=== PATIENT | male | born 1965 | race Caucasian/White ===

== ENCOUNTER 2019-02-15 12:25 | Emergency (ER) | payer MEDICAID ==
[~2019-02-15] VITALS: Ht 180.3 cm; Wt 75.0 kg
[~2019-02-15 12:25] MED LIST: BUPR150T8 PO; CARI350T PO; CITA20TA28 PO; METO100T7 PO; OMEP-84 PO; SIMV-42 PO
[2019-02-15 12:45] VITALS: BP 155/96
[2019-02-15] MEDS ORDERED: SULF1TAB49 PO (14:05)
--- NOTE | 2019-02-15 14:20 | NUR ---
PT SOAKING RIGHT HAND IN NS AND BETADINE.
--- NOTE | 2019-02-15 15:07 | NUR ---
DRESSING APPLIED TO WOUNDS ON HAND
== END 2019-02-15 15:08 | disposition home or self-care (01) ==
LOC: ER 12:25
DX: S61.206A Unspecified open wound of right little finger without damage to nail, initial encounter (principal); S61.200A Unspecified open wound of right index finger without damage to nail, initial encounter; L03.011 Cellulitis of right finger; I10 Essential (primary) hypertension; K21.9 Gastro-esophageal reflux disease without esophagitis; F32.9 Major depressive disorder, single episode, unspecified; Z90.49 Acquired absence of other specified parts of digestive tract; Z98.890 Other specified postprocedural states; Z56.0 Unemployment, unspecified; Z59.0 Homelessness; Z79.2 Long term (current) use of antibiotics; Z79.899 Other long term (current) drug therapy; W45.8XXA Other foreign body or object entering through skin, initial encounter; Y93.89 Activity, other specified; Y92.89 Other specified places as the place of occurrence of the external cause; Y99.8 Other external cause status
CPT/HCPCS: 99283

== ENCOUNTER 2020-09-14 15:40 | Emergency (ER) | payer OTHER, MEDICAID ==
[~2020-09-14] VITALS: Ht 180.3 cm; Wt 75.0 kg
--- NOTE | 2020-09-14 16:16 | NUR ---
Pt came in to ED overflow at 1555 via EMS. Pt was brought in on gurnery and placed in bed 22. Pt is alert and oriented. Pt is calm and being interviewed by ANTONIA Hugo. Lab drawn without incident.
[2020-09-14 16:41] LABS: BASOPHILS % (AUTO) 0.6 % (0-1); EOSINOPHILS # (AUTO) 0.1 X10'3 (0-0.9); EOSINOPHILS % (AUTO) 1.7 % (0-6); HEMOGLOBIN 14.7 g/dl (14.0-17.9); LYMPHOCYTES # (AUTO) 1.6 X10'3 (1.1-4.8); LYMPHOCYTES % (AUTO) 22.9 % (21-51); MEAN CORPUSCULAR HEMOGLOBIN 31.4 PG (27.0-31.0); MEAN CORPUSCULAR HGB CONC 34.1 g/dL (33.0-36.5); MEAN CORPUSCULAR VOLUME 92.1 FL (78-98); MEAN PLATELET VOLUME 7.1 FL (7.4-10.4); MONOCYTES # (AUTO) 0.6 X10'3 (0-0.9); MONOCYTES % (AUTO) 8.6 % (2-12); NEUTROPHILS # (AUTO) 4.7 X10'3 (1.8-7.7); NEUTROPHILS % (AUTO) 66.2 % (42-75); PLATELET COUNT 296 X10'3 (140-440); RED BLOOD COUNT 4.67 X10'6 (4.70-6.10); RED CELL DISTRIBUTION WIDTH 13.3 % (11.5-14.5); WHITE BLOOD COUNT 7.1 X10'3 (4.5-11.0)
[2020-09-14 16:56] LABS: ALANINE AMINOTRANSFERASE 20 U/L (12-78); ALBUMIN 3.4 G/DL (3.4-5.0); ALKALINE PHOSPHATASE 75 IU/L (46-116); ANION GAP 8 (8-16); ASPARTATE AMINO TRANSFERASE 25 U/L (10-37); BILIRUBIN,TOTAL 0.4 MG/DL (0.1-1.0); BLOOD UREA NITROGEN 21 MG/DL (7-18); BUN/CREATININE RATIO 13.7 (5.4-32.0); CALCIUM 8.2 MG/DL (8.5-10.1); CHLORIDE 107 MMOL/L (99-107); CREATININE 1.53 MG/DL (0.60-1.10); GLUCOSE 82 MG/DL (70-104); POTASSIUM 3.7 MMOL/L (3.5-5.1); SODIUM 140 MMOL/L (135-145); TOTAL CARBON DIOXIDE 25.2 MMOL/L (24-32); TOTAL PROTEIN 6.8 G/DL (6.4-8.2); eGFR 47 ML/MIN
[2020-09-14 17:05] LABS: ETHANOL < 0.010 GM/DL (0.0-0.010)
[2020-09-14 17:28] LABS: CLARITY,URINE SLIGHTLY CLOUDY (Clear); COLOR,URINE YELLOW (Yellow); GLUCOSE, URINE NEGATIVE (Neg); KETONES,URINE NEGATIVE (Neg); LEUKOCYTE ESTERASE ,URINE NEGATIVE (Neg); NITRITES, URINE NEGATIVE (Neg); OCCULT BLOOD,URINE NEGATIVE (Neg); PROTEIN,URINE NEGATIVE (Neg); UROBILINOGEN,URINE 0.2 E.U/dL (0.2-1.0)
[2020-09-14 17:30] LABS: UA COLLECTION TYPE CLN CATCH MIDSTREAM
[2020-09-14 17:33] LABS: URINE AMPHETAMINE SCREEN POSITIVE (Neg); URINE BARBITUATE SCREEN NEGATIVE (Neg); URINE BENZODIAZEPINES SCREEN NEGATIVE (Neg); URINE CANNABINOID SCREEN NEGATIVE (Neg); URINE COCAINE SCREEN NEGATIVE (Neg); URINE METHADONE SCREEN NEGATIVE (Neg); URINE OPIATE SCREEN NEGATIVE (Neg); URINE PHENCYCLIDINE SCREEN NEGATIVE (Neg)
[2020-09-14 17:36] LABS: MUCUS STRANDS MANY /LPF (Neg)
[2020-09-14 17:37] LABS: SQUAMOUS EPITHELIAL CELL,UR FEW /LPF (FEW); TRANSITIONAL EPI CELLS,URINE FEW /HPF
[2020-09-14 17:38] LABS: HYALINE CASTS 0-3 /LPF (NEGATIVE)
[2020-09-14 17:41] LABS: BACTERIA,URINE NONE SEEN /HPF (Neg); CAL OXALATE CRYSTALS 3+ /HPF (NEGATIVE); RBC,URINE NONE SEEN /HPF (0-2); WBC,URINE 0-4 /HPF (0-4)
--- NOTE | 2020-09-14 17:43 | NUR ---
PACKET FAXED TO [facility]
--- NOTE | 2020-09-14 19:15 | NUR ---
assumed care of patient. Pt was laying in bed at change of shift, sat up to eat his dinner and ate 100% of his meal. Pt maintains that he is suicidal and doesnt feel safe to leave the hospital. Plan is to overdose on heroin. [facility] has arrived to see him.
[2020-09-14] MEDS ORDERED: LISI10TA27 PO (20:37)
--- NOTE | 2020-09-14 21:40 | NUR ---
Pt is laying quietly in bed, rr even and unlabored. Pt continues to endorse s/i.
--- NOTE | 2020-09-15 00:25 | NUR ---
pt laying on right side rr even and unlabored. no s/s distress.
--- NOTE | 2020-09-15 04:28 | NUR ---
pt is laying on his back, asleep. rr even and unlabored.
[2020-09-15 05:50] VITALS: BP_DIAS 107
--- NOTE | 2020-09-15 07:07 | NUR ---
pt is supine in bed, eyes closed, regular breathing observed, no needs at this time
[2020-09-15] MEDS ORDERED: metoprolol succinate 25mg (24-HOUR) SR. Tablet PO SCH (08:00)
[2020-09-15] MEDS ORDERED: atorvastatin 10mg tablet PO SCH (08:00)
[2020-09-15] MEDS ORDERED: lisinopril 10 MG tablet PO SCH (08:00)
--- NOTE | 2020-09-15 08:00 | NUR ---
pt at hism breakfast and was accepting of medications, calm, no needs at this time
[2020-09-15 08:12] VITALS: BP_SYST 189
--- NOTE | 2020-09-15 09:02 | NUR ---
pt awake, calm, no needs at this time
--- NOTE | 2020-09-15 10:00 | NUR ---
pt is supine in bed, eyes closed, regular breathing present, no needs at this time
--- NOTE | 2020-09-15 11:05 | NUR ---
pt is supine in bed, eyes closed, no needs at this time
--- NOTE | 2020-09-15 11:21 | NUR ---
pt has been accepted upstairs
--- NOTE | 2020-09-15 12:10 | NUR ---
PT REQ COFFEE FOR MARC, GIVEN COFFEE, SITTING UP IN BED, CALM NO NEEDS AT THIS TIME
--- NOTE | 2020-09-15 13:05 | NUR ---
pt is supine in bed, ate lunch, no needs at this time
--- NOTE | 2020-09-15 14:09 | NUR ---
pt supine in bed sleeping, regular breathing present, no needs at this time
== END 2020-09-15 14:35 ==
LOC: ER 15:41
DX: F32.9 Major depressive disorder, single episode, unspecified (principal); Z20.822 Contact with and (suspected) exposure to COVID-19; R45.851 Suicidal ideations; E86.0 Dehydration; N19 Unspecified kidney failure; I10 Essential (primary) hypertension; K21.9 Gastro-esophageal reflux disease without esophagitis; Z90.49 Acquired absence of other specified parts of digestive tract; Z98.890 Other specified postprocedural states; Z72.89 Other problems related to lifestyle; Z56.0 Unemployment, unspecified; Z59.0 Homelessness; Z79.899 Other long term (current) drug therapy
CPT/HCPCS: 36415; 80053; 80305; 80320; 81001; 84443; 85025; 87426; 99285

== ENCOUNTER 2020-09-15 11:37 | Inpatient (IN) | payer OTHER, MEDICAID ==
[~2020-09-15] VITALS: Ht 180.3 cm; Wt 79.5 kg
[~2020-09-15 11:37] MED LIST changes: -BUPR150T8 PO; -CARI350T PO; -CITA20TA28 PO; +LISI10TA27 PO; -OMEP-84 PO
[2020-09-15] MEDS ORDERED: loperamide 2mg capsule PO PRN (11:50)
[2020-09-15] MEDS ORDERED: magnesium hydroxide 30ml (MOM) UD suspension PO PRN (11:50)
[2020-09-15] MEDS ORDERED: acetaminophen 325mg tablet PO PRN ×2 (11:50)
[2020-09-15] MEDS ORDERED: mag hydrox/Alum hydrox/simeth 30ml oral suspension PO PRN (11:50)
[2020-09-15] MEDS ORDERED: NICOTINE POLACRILEX 2 MG LOZENGE BC PRN (11:50)
[2020-09-15 15:02] VITALS: BP 168/97
--- NOTE | 2020-09-15 18:20 | NUR ---
Admission note: Pt admitted today to [facility] on a 5150 for DTS from our ER escorted by security. Pt states he wants to kill himself by injecting heroin into his rectum. Pt has a history of depression, facial reconstruction palate surgery, HTN. Pt is cooperative with the admission process.
--- NOTE | 2020-09-15 18:21 | NUR ---
Pt. scores as a high suicide risk on the [place] Suicide Risk Assessment, however he is able to contract for safety on the unit. This was endorsed to ANTONIA Sánchez who ordered Q 15min safety checks.
[2020-09-15 19:29] VITALS: BP 154/81
[2020-09-15] MEDS: LORazepam 1 MG tablet PO PRN (19:49)
[2020-09-15] MEDS: traZODone 50mg tablet PO PRN (19:49)
--- NOTE | 2020-09-16 01:20 | NUR ---
Nursing Progress Note Legal hold:5150 Client on involuntary status for DTS Report received from Jamil with use of SBAR Why are they here: Pt states he wants to kill himself by injecting heroin into his rectum. Pt has a history of depression, facial reconstruction palate surgery, HTN. Assessment What has happened this shift: Pt is in bed at change of shift. Isolates to his room. Pt continues to endorse s/i and depression. Plan to OD on heroin. Pt states his day was "stressful" because of a message he received on his cellphone. Pt is evasive and states he doesn't want to talk about. S/I, H/I: pt continues to endorse s/i A/VH: denies Sleep: see sleep hours ADL's: independent Group attendance: no evening groups Were meds taken: yes Any med S/E: none Mental Status Exam Appearance: disheveled, dressed appropriately for environment Eye contact: good Behavior: isolative Speech: soft spoken, mumbles, covers mouth during conversation with blanket Mood:depressed, anxious "stressed" Affect: constricted Thought process: Linear Thought Content: pt states he is stressed because of a phone message he had Cognition: a/ox4 Insight: fair Judgment: fair Interventions PRN's used: ativan trazodone Interventions: 1:1 assessment, therapeutic communication, medication education and monitoring, encouragement to come to meals and participate in unit activities, behavior monitoring and intervention as needed, distraction, redirection, Q 15 minute safety checks. Restraints/seclusion/emergency medication: None Justification of Continued Inpatient Treatment: Pt needs crisis interruption and stabilization with medication management and monitoring in a safe and therapeutic environment until stable.
[2020-09-16 07:49] VITALS: BP 135/90
[2020-09-16 08:09] LABS: HEMOGLOBIN A1C 5.4 % (4.5-6.2)
[2020-09-16 08:22] LABS: CHOL/HDL RATIO 3.6 (0.00-4.99); CHOLESTEROL 185 MG/DL (0-200); HDL CHOLESTEROL 52 MG/DL (35-60); LDL CHOLESTEROL 117 MG/DL (50-100); TRIGLYCERIDES 51 MG/DL (20-135)
[2020-09-16] MEDS: atorvastatin 10mg tablet PO SCH (08:34)
[2020-09-16] MEDS: metoprolol succinate 25mg (24-HOUR) SR. Tablet PO SCH (08:35)
[2020-09-16] MEDS: lisinopril 10 MG tablet PO SCH (08:35)
--- NOTE | 2020-09-16 12:25 | NUR ---
Nursing Progress Note: Legal hold: 5150 Client on involuntary status for DTS Report received from nurse with use of SBAR: ALPHONSO Toussaint Why are they here: Pt states he wants to kill himself by injecting heroin into his rectum. Pt has a history of depression, facial reconstruction palate surgery, HTN. Assessment What has happened this shift: Received pt. sleeping in bed at the beginning of the shift, he was awoken to attend breakfast in the group room. After breakfast, pt. immediately retreated back to bed. Pt. was compliant with medications and 1:1 completed at bedside. Pt. presents as cooperative, fatigued, guarded, and isolative. He reports ongoing S/I with a plan to inject heroin into his rectum. Pt. denies any H/I, A/V/MARC, and no delusional statements made. His affect is flat, and speech is soft and he responds to direct questions only with a minimal response. Later, pt. was observed to be sitting up in a chair by his bed in a dark room. He denies any needs at this time, will continue to monitor. S/I, H/I: Pt. reports ongoing S/I with a plan to inject heroin into his rectum A/VH: Pt. denies, does not appear internally preoccupied Sleep: Pt. reports he slept well, sleep hours are 9.25, and he naps intermittently during the morning ADL's: Pt. requires some encouragement Group attendance: N/A Were meds taken: Yes Any med S/E: None Mental Status Exam Appearance: Somewhat disheveled, however appropriately dressed Eye contact: Poor Behavior: Cooperative, fatigued, guarded, and isolative Speech: Soft and responds to direct questions only Mood: Depressed Affect: Flat Thought process: Poverty of thought Thought Content: Continued preoccupation with depression and S/I Cognition: A&O X4 Insight: Poor Judgment: Poor Interventions PRN's used: None Therapeutic interventions: Maintained a safe and therapeutic environment, ensured contract for safety while on the unit, provided clear and simple instructions, encouraged independent performance of ADLs and provided encouragement as needed, and monitored Q 15min safety checks. Restraints/seclusion/emergency medication: N/A Justification of Continued Inpatient Treatment: Pt. requires interruption of current crisis, medication adjustments, and a safe and therapeutic environment.
--- NOTE | 2020-09-16 15:14 | NUR ---
Assessment: MSE: Appearance: clean, in hospital scrubs BXS: Cooperative TP: Linear, coherent TC: SI, Depression Mood: Depressed Affect: flat Speech: Soft PHQ-9 score was 22 suggesting severe depression SBIRT: indicates a need for further diagnostic evaluation and referral for drug/alohol treatment. These scores were discussed w/pt, pt uses meth to elevate mood, possibly coping w/depression. SS discussed options of residential drug/alcohol treatment via PHP, pt in agreement. SS also encouraged pt to talk to Dr. Young about antidepressant especially if he plans to enter drug treatment program, as he will not have access to meth to elevate his mood and therefore would need antidepressant to support him in managing his depression. Zandra Blackwell LCSW Addendum: 09/16/20 at 1523 by Zandra Blackwell Amended: Links added.
[2020-09-16 19:24] VITALS: BP 126/70
[2020-09-16] MEDS: traZODone 50mg tablet PO PRN (20:12)
--- NOTE | 2020-09-16 21:26 | NUR ---
Nursing Progress Note: Legal hold: 5150 Client on involuntary status for DTS Report received from nurse with use of SBAR: Tod RN Why are they here: Pt states he wants to kill himself by injecting heroin into his rectum. Pt has a history of depression, facial reconstruction palate surgery, HTN. Assessment What has happened this shift: Pt is bed at change of shift. Pt is quiet and isolates to his room. Pt continues to endorse s/i "I will if you guys let me out of here." Pt reports depression about an 8/10, with 10 being the worst he's every experienced it. Pt reports no needs, is not c/o anxiety tonight as he did last night. Pt would like a prn for sleep tonight, reporting difficulty falling asleep. Pt gives minimal response to questions, is calm, cooperative with assessment. S/I, H/I: Pt. reports ongoing S/I with a plan to inject heroin into his rectum A/VH: Pt. denies Sleep: see sleep hours ADL's: Pt. requires some encouragement Group attendance: N/A Were meds taken: PRNs only Any med S/E: None Mental Status Exam Appearance: Somewhat disheveled, however appropriately dressed Eye contact: fair Behavior: Cooperative, fatigued, guarded, and isolative Speech: Soft and responds to direct questions only Mood: Depressed Affect: Flat Thought process: Poverty of thought Thought Content: Continued preoccupation with depression and S/I Cognition: A&O X4 Insight: Poor Judgment: Poor Interventions PRN's used: trazodone Therapeutic interventions: Maintained a safe and therapeutic environment, ensured contract for safety while on the unit, provided clear and simple instructions, encouraged independent performance of ADLs and provided encouragement as needed, and monitored Q 15min safety checks. Restraints/seclusion/emergency medication: N/A Justification of Continued Inpatient Treatment: Pt. requires interruption of current crisis, medication adjustments, and a safe and therapeutic environment.
[2020-09-17 07:36] VITALS: BP 140/85
[2020-09-17] MEDS: atorvastatin 10mg tablet PO SCH (07:53)
[2020-09-17] MEDS: metoprolol succinate 25mg (24-HOUR) SR. Tablet PO SCH (07:53)
[2020-09-17] MEDS: lisinopril 10 MG tablet PO SCH (07:55)
[2020-09-17] MEDS ORDERED: venlafaxine 37.5mg tablet PO SCH (08:15)
--- NOTE | 2020-09-17 11:24 | NUR ---
CM/DCP Presenting Issues: Pt's 5150 will tomorrow, Pt expressed interest in drug rehab. Interventions: SS met w/pt and engaged him in activities to access inpatient drug rehab services, Pt became irritable, claimed that he's already been screened by [facility] and has a phone number in his cell phone to call. SS accessed pt's cell phone and the number he's referring to is the [facility] number to access services. SS asked pt to call & f/u on his previous screening, pt was angry that he's being asked to do so, per [employer] marketing services specialist, [facility] does not have records of pt calling to access over the past 2 weeks. Pt completed [facility] screening however there were no available rehab beds at this time. Pt states "I'm more suicidal now than when I came in here". Pt then asked for a [facility] to [facility]. SS had t/c w/[facility] and coordinated pt's post-hospital f/u. Plan: Pt will be difficult to d/c as he will continue to reports suicidality especially if we discuss discharge w/him. Recommended dcp is for pt to d/c on 09/25 which is the day [facility], he can be transported directly there. This is the safest plan as pt keeps reporting suicidal intention and threatening to attempt if discharged. Zandra Blackwell LCSW Addendum: 09/17/20 at 1139 by Zandra DREW Amended: Links added.
--- NOTE | 2020-09-17 14:01 | NUR ---
Nursing Progress Note: Legal hold: 5150 Client on involuntary status for DTS Report received from nurse with use of SBAR: Tod RN Why are they here: Pt states he wants to kill himself by injecting heroin into his rectum. Pt has a history of depression, facial reconstruction palate surgery, HTN. Assessment What has happened this shift: Pt is up and visible at the beginning of the shift. Pt pacing halls a bit. After breakfast, pt met with social human services assistants to work on disposition planning which is looking like a treatment center to be the best option and they put in an application over the phone. Pt later initiated shaving and taking a shower. After lunch, pt laying in bed. Pt hesitantly reports continued presence of vague suicidal thoughts; though, initially pt states he feels better. S/I, H/I: Pt. reports ongoing S/I with a plan to inject heroin into his rectum A/VH: Pt. denies Sleep: see sleep hours ADL's: Pt. requires some encouragement Group attendance: N/A Were meds taken: PRNs only Any med S/E: None Mental Status Exam Appearance: Somewhat disheveled, however appropriately dressed Eye contact: fair Behavior: Cooperative, fatigued, guarded, and isolative Speech: Soft and responds to direct questions only Mood: Depressed Affect: Flat Thought process: Poverty of thought Thought Content: Continued preoccupation with depression and S/I Cognition: A&O X4 Insight: Poor Judgment: Poor Interventions PRN's used: Therapeutic interventions: Maintained a safe and therapeutic environment, ensured contract for safety while on the unit, provided clear and simple instructions, encouraged independent performance of ADLs and provided encouragement as needed, and monitored Q 15min safety checks. Restraints/seclusion/emergency medication: N/A Justification of Continued Inpatient Treatment: Pt. requires interruption of current crisis, medication adjustments, and a safe and therapeutic environment.
[2020-09-17 19:00] VITALS: BP 145/88
[2020-09-18] MEDS: traZODone 50mg tablet PO PRN ×2 (00:52→23:48)
--- NOTE | 2020-09-18 00:57 | NUR ---
Nursing Progress Note: Legal hold: 5150 Client on involuntary status for DTS Report received from ALPHONSO Krishnan with use of SBAR" Why are they here: Pt states he wants to kill himself by injecting heroin into his rectum. Pt has a history of depression, facial reconstruction palate surgery, HTN. Assessment What has happened this shift: Patient isolates in his room following shift change. 1:1 Interview at bedside. Patient is well oriented. Affect is flat. Patient presents as linear. Patient states he is depressed, S/I without a plan. Patient brightens somewhat when he talks about his experience, his tolu of law school. The patient then darkens somewhat, he mentions of being in care home, "for something that I didn't do." Patient is cooperative and medication compliant. S/I, H/I: Suicidal ideation, no plan. Denies H/I. A/VH: Denies. Sleep: Will tally at 0500 hours. ADL's: Pt. requires some encouragement. 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 Were meds taken: Medication compliant. Any med S/E: None noted or observed. Mental Status Exam Appearance: Disheveled look. Eye contact: Fair. Behavior: Cooperative, fatigued, guarded, and isolative Speech: Quiet, regular rhythm and tone. Mood: Depressed. Affect: Flat. Thought process: Linear. Thought Content: States he is depressed. S/I without plan. Cognition: A&O X4. Insight: Poor. Judgment: Poor. Interventions PRN's used: Trazadone. Therapeutic interventions: Maintained a safe and therapeutic environment, ensured contract for safety while on the unit, provided clear and simple instructions, encouraged independent performance of ADLs and provided encouragement as needed, and monitored Q 15min safety checks. Restraints/seclusion/emergency medication: N/A Justification of Continued Inpatient Treatment: Pt. requires interruption of current crisis, medication adjustments, and a safe and therapeutic environment.
[2020-09-18 07:53] VITALS: BP 145/86
[2020-09-18] MEDS: metoprolol succinate 25mg (24-HOUR) SR. Tablet PO SCH (08:07)
[2020-09-18] MEDS: atorvastatin 10mg tablet PO SCH (08:08)
[2020-09-18] MEDS: venlafaxine XR 75mg capsule (Q24H) PO SCH (08:08)
[2020-09-18] MEDS: lisinopril 10 MG tablet PO SCH (08:08)
--- NOTE | 2020-09-18 17:08 | NUR ---
Nursing Progress Note: Legal hold: 5150 Client on involuntary status for DTS Report received from nurse with use of SBAR: Marisela Wang RN Why are they here: Pt states he wants to kill himself by injecting heroin into his rectum. Pt has a history of depression, facial reconstruction palate surgery, HTN. Assessment What has happened this shift: Pt is up and visible at the beginning of the shift. Pt pacing halls a bit. After breakfast, pt returned to his room and slept for a bit. Pt awoke before lunch and was cooperative with assessment. Pt stated he's feeling a bit better and denied current thoughts of suicide and said he felt hopeful. Pt does have flat/depressed affect. Pt initiated taking a shower and was more visible after lunch. S/I, H/I: Pt. denies current thoughts A/VH: Pt. denies Sleep: see sleep hours ADL's: Pt. requires some encouragement Group attendance: N/A Were meds taken: PRNs only Any med S/E: None Mental Status Exam Appearance: Somewhat disheveled, however appropriately dressed Eye contact: fair Behavior: Cooperative, fatigued, guarded, and isolative Speech: Soft and responds to direct questions only Mood: Depressed Affect: Flat Thought process: Poverty of thought Thought Content: Continued preoccupation with depression and S/I Cognition: A&O X4 Insight: Poor Judgment: Poor Interventions PRN's used: Therapeutic interventions: Maintained a safe and therapeutic environment, ensured contract for safety while on the unit, provided clear and simple instructions, encouraged independent performance of ADLs and provided encouragement as needed, and monitored Q 15min safety checks. Restraints/seclusion/emergency medication: N/A Justification of Continued Inpatient Treatment: Pt. requires interruption of current crisis, medication adjustments, and a safe and therapeutic environment.
[2020-09-18 19:00] VITALS: BP 141/86
--- NOTE | 2020-09-18 20:27 | NUR ---
Nursing Progress Note: Legal hold: 5150 Client on involuntary status for DTS Report received from nurse with use of SBAR: Continued as pt's nurse from dayshift. Why are they here: Pt states he wants to kill himself by injecting heroin into his rectum. Pt has a history of depression, facial reconstruction palate surgery, HTN. Assessment What has happened this shift: Received pt finishing dinner in dining room. After dinner, pt returned to his room and was cooperative with assessment. Pt conveyed increased hope and denies S.I. at this point. Later during snack, pt's flat affect even cracked and he smiled a bit. S/I, H/I: Pt. denies current thoughts A/VH: Pt. denies Sleep: see sleep hours ADL's: Pt. requires some encouragement Group attendance: N/A Were meds taken: PRNs only Any med S/E: None Mental Status Exam Appearance: Somewhat disheveled, however appropriately dressed Eye contact: fair Behavior: Cooperative, fatigued, guarded, and isolative Speech: Soft and responds to direct questions only Mood: Depressed Affect: Flat Thought process: Poverty of thought Thought Content: Continued preoccupation with depression and S/I Cognition: A&O X4 Insight: Poor Judgment: Poor Interventions PRN's used: Therapeutic interventions: Maintained a safe and therapeutic environment, ensured contract for safety while on the unit, provided clear and simple instructions, encouraged independent performance of ADLs and provided encouragement as needed, and monitored Q 15min safety checks. Restraints/seclusion/emergency medication: N/A Justification of Continued Inpatient Treatment: Pt. requires interruption of current crisis, medication adjustments, and a safe and therapeutic environment.
[2020-09-19 07:58] VITALS: BP 135/79
[2020-09-19] MEDS: atorvastatin 10mg tablet PO SCH (09:27)
[2020-09-19] MEDS: lisinopril 10 MG tablet PO SCH (09:27)
[2020-09-19] MEDS: venlafaxine XR 75mg capsule (Q24H) PO SCH (09:27)
[2020-09-19] MEDS: metoprolol succinate 25mg (24-HOUR) SR. Tablet PO SCH (09:28)
--- NOTE | 2020-09-19 11:07 | NUR ---
Nursing Progress Note: Legal hold: VOL Client on voluntary status Report received from nurse Marisela Wang RN with use of SBAR Why are they here: Pt states he wants to kill himself by injecting heroin into his rectum. Pt has a history of depression, facial reconstruction palate surgery, HTN. Assessment What has happened this shift: Received pt in his bed at start of shift. Pt up for breakfast then back to his bed. he later was up for snack. He is medication compliant. Reports regular BM's. Pt appears to want to sleep at this time. S/I, H/I: Endorses SI "I have nothing to live for." A/VH: Denies Sleep: Sleeps in between snack and meals. ADL's: Needs encouragement Group attendance: N/A Were Meds taken: Yes Any med S/E: None noted or reported Mental Status Exam Appearance: Young male with black painted fingernails, bald head and green hospital scrubs. Eye contact: Fair Behavior: Cooperative,guarded Speech: Soft, normal rate and rhythm Mood: Depressed Affect: Congruent with mood Thought process: Poverty of thought Thought Content: Pt depressed and expresses hopelessness Cognition: A&O X4 Insight: Poor Judgment: Poor Interventions PRN's used: N/A Therapeutic interventions: Provided 1:1 am assessment, mediaction administration/education/monitoring, encouraged independent performance of ADLs, and monitored Q 15min safety checks. Restraints/seclusion/emergency medication: N/A Justification of Continued Inpatient Treatment: Pt. requires interruption of current crisis, medication adjustments, and a safe and therapeutic environment.
[2020-09-19 19:00] VITALS: BP 125/77
[2020-09-19] MEDS: traZODone 50mg tablet PO PRN (21:08)
--- NOTE | 2020-09-19 22:21 | NUR ---
Nursing Progress Note: Legal hold: 5150 Client on involuntary status for DTS Report received from nurse with use of SBAR: Ariella SHAFER Why are they here: Pt states he wants to kill himself by injecting heroin into his rectum. Pt has a history of depression, facial reconstruction palate surgery, HTN. Assessment What has happened this shift: Received pt sitting in chair in room. Pt isolative to self. Pt did come out for snack, but did not interact with peers. Pt currently denies suicidal thoughts and seems a little less negative and less depressed. Pt did request trazodone for sleep and appeared asleep in bed by 2200. S/I, H/I: Pt. denies current thoughts A/VH: Pt. denies Sleep: see sleep hours ADL's: Pt. requires some encouragement Group attendance: N/A Were meds taken: PRNs only Any med S/E: None Mental Status Exam Appearance: Somewhat disheveled, however appropriately dressed Eye contact: fair Behavior: Cooperative, fatigued, guarded, and isolative Speech: Soft and responds to direct questions only Mood: Depressed Affect: Flat Thought process: Poverty of thought Thought Content: Continued preoccupation with depression and S/I Cognition: A&O X4 Insight: Poor Judgment: Poor Interventions PRN's used: trazodone Therapeutic interventions: Maintained a safe and therapeutic environment, ensured contract for safety while on the unit, provided clear and simple instructions, encouraged independent performance of ADLs and provided encouragement as needed, and monitored Q 15min safety checks. Restraints/seclusion/emergency medication: N/A Justification of Continued Inpatient Treatment: Pt. requires interruption of current crisis, medication adjustments, and a safe and therapeutic environment.
[2020-09-20 07:52] VITALS: BP 137/84
[2020-09-20] MEDS: atorvastatin 10mg tablet PO SCH (08:20)
[2020-09-20] MEDS: lisinopril 10 MG tablet PO SCH (08:20)
[2020-09-20] MEDS: metoprolol succinate 25mg (24-HOUR) SR. Tablet PO SCH (08:20)
[2020-09-20] MEDS: venlafaxine XR 75mg capsule (Q24H) PO SCH (08:20)
--- NOTE | 2020-09-20 08:41 | NUR ---
Initial: Pt admit DX SI, major depressive disorder, HTN, and meth use disorder per MD note. PO 100% avg regular diet meeting needs. LBM 09/19. No nutrition intervention at this time. Will continue to monitor. Rec: 1. continue regular diet 2. bowel care per rx 3. weekly wts Addendum: 09/20/20 at [address] Amended: Links added.
--- NOTE | 2020-09-20 15:23 | NUR ---
Nursing Progress Note: Legal hold: VOL Client on voluntary status Report received from nurse Marisela Wnag RN with use of SBAR Why are they here: Pt states he wants to kill himself by injecting heroin into his rectum. Pt has a history of depression, facial reconstruction palate surgery, HTN. Assessment What has happened this shift: Received pt sleeping in bed at start of shift. Pt gets up for breakfast and snacks then returns to his bed. he showered today. He reports feeling a "little better today." He is medication compliant. Reports regular BM's. He continues to isolate from staff and peers. S/I, H/I: Passive SI; denies HI A/VH: Denies Sleep: Sleeps in between snack and meals. ADL's: Showered Group attendance: N/A Were Meds taken: Yes Any med S/E: None noted or reported Mental Status Exam Appearance: Young male with black painted fingernails, bald head and clean green hospital scrubs. Eye contact: Fair Behavior: Cooperative,guarded Speech: Soft, normal rate and rhythm Mood: Depressed Affect: Congruent with mood Thought process: Poverty of thought Thought Content: Pt reports depression Cognition: A&O X4 Insight: Poor Judgment: Poor Interventions PRN's used: N/A Therapeutic interventions: Provided 1:1 am assessment, mediaction administration/education/monitoring, encouraged independent performance of ADLs, and monitored Q 15min safety checks. Restraints/seclusion/emergency medication: N/A Justification of Continued Inpatient Treatment: Pt. requires interruption of current crisis, medication adjustments, and a safe and therapeutic environment.
[2020-09-20 19:19] VITALS: BP 134/89
[2020-09-20] MEDS: traZODone 50mg tablet PO PRN (20:18)
--- NOTE | 2020-09-20 23:12 | NUR ---
Nursing Progress Note: Legal hold: 5150 Client on involuntary status for DTS Report received from nurse with use of SBAR: Ariella SHAFER Why are they here: Pt states he wants to kill himself by injecting heroin into his rectum. Pt has a history of depression, facial reconstruction palate surgery, HTN. Assessment What has happened this shift: Pt was sitting in his room at change of shift. Pt states his day is ok. Pt reports feeling depressed and has s/i periodically but not at the moment. Pt continues to isolate to himself but did spend some time in the group room watching tv after snacks. Pt c/o "510" anxiety and requested prn ativan as well as trazodone for sleep tonight S/I, H/I: Pt. denies current thoughts A/VH: Pt. denies Sleep: see sleep hours ADL's: Pt. requires some encouragement Group attendance: N/A Were meds taken: PRNs only Any med S/E: None Mental Status Exam Appearance: Somewhat disheveled, however appropriately dressed Eye contact: fair Behavior: Cooperative, fatigued, guarded, and isolative Speech: Soft and responds to direct questions only Mood: Depressed, anxious Affect: Flat Thought process: Poverty of thought Thought Content: Continued preoccupation with depression and S/I Cognition: A&O X4 Insight: Poor Judgment: Poor Interventions PRN's used: trazodone Therapeutic interventions: Maintained a safe and therapeutic environment, ensured contract for safety while on the unit, provided clear and simple instructions, encouraged independent performance of ADLs and provided encouragement as needed, and monitored Q 15min safety checks. Restraints/seclusion/emergency medication: N/A Justification of Continued Inpatient Treatment: Pt. requires interruption of current crisis, medication adjustments, and a safe and therapeutic environment.
[2020-09-21 07:09] VITALS: BP 142/96
[2020-09-21] MEDS: venlafaxine XR 75mg capsule (Q24H) PO SCH (07:53)
[2020-09-21] MEDS: metoprolol succinate 25mg (24-HOUR) SR. Tablet PO SCH (07:54)
[2020-09-21] MEDS: atorvastatin 10mg tablet PO SCH (07:54)
[2020-09-21] MEDS: lisinopril 10 MG tablet PO SCH (07:54)
[2020-09-21] MEDS: LORazepam 1 MG tablet PO PRN (16:01)
--- NOTE | 2020-09-21 17:16 | NUR ---
Nursing Progress Note Legal hold: VOL Client on voluntary status Report received from RN with use of SBAR Why are they here: Pt states he wants to kill himself by injecting heroin into his rectum. Pt has a history of depression, facial reconstruction palate surgery, HTN. Assessment What has happened this shift: Received Pt sleeping in bed w/o distress at start of shift. Pt woke and was cooperative with vitals and AM assessments. Pt took medications this morning w/o issue and returned to bed after breakfast. Pt seen in halls intermittently, but spent most of the day in his bed/room. Pt c/o anxiety in afternoon and received Ativan with good effect. Pt wants to attend a Rehab. After discharge hopefully away from hereI know too many people here. Pt enjoys history and engaged in conversation about history and ancient literature. S/I, H/I: Passive SI; denies HI A/VH: Denies Sleep: Napped throughout day ADL's: Independent Group attendance: N/A Were Meds taken: Yes Any med S/E: None noted or reported Mental Status Exam Appearance: Casual in green scrubs Eye contact: Fair Behavior: Cooperative, polite Speech: Soft, Mood: Depressed Affect: Congruent with mood Thought process: Linear Thought Content: Going to rehab Cognition: A&O X4 Insight: Poor Judgment: Poor Interventions PRN's used: N/A Therapeutic interventions: Provided 1:1 am assessment, medication administration/education/monitoring, encouraged independent performance of ADLs, and monitored Q 15min safety checks. Restraints/seclusion/emergency medication: N/A Justification of Continued Inpatient Treatment: Pt. requires interruption of current crisis, medication adjustments, and a safe and therapeutic environment.
[2020-09-21 19:16] VITALS: BP 145/86
[2020-09-21] MEDS: traZODone 50mg tablet PO PRN (20:03)
--- NOTE | 2020-09-21 20:57 | NUR ---
Nursing Progress Note Legal hold: VOL Client on voluntary status Report received from Luis WERNER with use of SBAR Why are they here: Pt states he wants to kill himself by injecting heroin into his rectum. Pt has a history of depression, facial reconstruction palate surgery, HTN. Assessment What has happened this shift: Pt was in bed at change of shift sleeping. Pt woke prior to snack and reports some anxiety but states he is feeling better. Pt took trazodone for sleep at HS but declined to have a snack. S/I, H/I: Passive SI; denies HI A/VH: Denies Sleep:see sleep hours ADL's: Independent Group attendance: N/A Were Meds taken: PRN only Any med S/E: None noted or reported Mental Status Exam Appearance: Casual in green scrubs Eye contact: Fair Behavior: Cooperative, polite Speech: Soft, Mood: Depressed, anxious Affect: Congruent with mood Thought process: Linear Thought Content: going to rehab Cognition: A&O X4 Insight: Poor Judgment: Poor Interventions PRN's used: N/A Therapeutic interventions: Provided 1:1 am assessment, medication administration/education/monitoring, encouraged independent performance of ADLs, and monitored Q 15min safety checks. Restraints/seclusion/emergency medication: N/A Justification of Continued Inpatient Treatment: Pt. requires interruption of current crisis, medication adjustments, and a safe and therapeutic environment.
[2020-09-22 07:13] VITALS: BP 140/90
[2020-09-22] MEDS: venlafaxine XR 75mg capsule (Q24H) PO SCH (08:08)
[2020-09-22] MEDS: atorvastatin 10mg tablet PO SCH (08:08)
[2020-09-22] MEDS: metoprolol succinate 25mg (24-HOUR) SR. Tablet PO SCH (08:09)
[2020-09-22] MEDS: lisinopril 10 MG tablet PO SCH (08:09)
--- NOTE | 2020-09-22 13:14 | NUR ---
Pt. attended group today. Todays group was about the difference between Growth Mindset vs. Fixed Mindset. We learned about the differences and then discussed what aspect of developing a growth mindset they wanted to work on. Pt engaged well in the group. He only shared when asked but he was open when he did. Pt. reported that he feels he needs to work more on perseverance in setbacks. He reported that he has recently been through a lot of setbacks which has overwhelmed him. He reported that he feels the way to start working on this is to take things a day at a time. This Communications Administrator encouraged him that him being at group today was a small step. He was alert and oriented X 4. His thought content and thought process was WNL. His demeanor was clam and compliant. Lakisha Tamez LCSW
--- NOTE | 2020-09-22 14:44 | NUR ---
DCP Presenting Issues: Attending physician requests SS support in dcp activities and recommends residential drug treatment for pt. Pt had contacted [facility] last week but was told that there were no open beds anywhere in [facility] and there's a 3 weeks wait for beds in [facility]. Interventions: SS had t/c with Annabella Haynes's Chief Medical Technologist at the [facility], per t/c, they have open male beds. SS met w/pt and encouraged him to contact [facility] to request for a referral to the [facility]. Pt was able to complete the [facility] [employer] eligibility screening and instructed to wait for the [facility]'s admission coordinator to call him. Plan: SS will follow-up with pt & the [facility] re the disposition. Zandra Blackwell LCSW Addendum: 09/22/20 at 1502 by Zandra Blackwell Amended: Links added.
--- NOTE | 2020-09-22 15:36 | NUR ---
Nursing Progress Note Legal hold: VOL Client on voluntary status Report received from RN with use of SBAR Why are they here: Pt states he wants to kill himself by injecting heroin into his rectum. Pt has a history of depression, facial reconstruction palate surgery, HTN. Assessment What has happened this shift: Patient was asleep at change of shift and up for breakfast. Patient spends a lot of time in his bed/isolates. Patient spoke with a rehab facility in [place] and they accepted him. Patient should be leaving here at 0600 on morning to get there by 0900 am. Patient is happy about going to rehab. Patient denies suicidal/homicidal ideation. Patient denies audio/visual hallucinations. S/I, H/I: Denies A/VH: Denies Sleep: Napped throughout day ADL's: Independent Group attendance: Yes Were Meds taken: Yes Any med S/E: None noted or reported Mental Status Exam Appearance: Casual in green scrubs Eye contact: Fair Behavior: Cooperative, polite Speech: Soft, Mood: Depressed Affect: Flat Thought process: Linear Thought Content: Going to rehab Cognition: A&O X4 Insight: Fair Judgment: Fair Interventions PRN's used: N/A Therapeutic interventions: Provided 1:1 am assessment, medication administration/education/monitoring, encouraged independent performance of ADLs, and monitored Q 15min safety checks. Restraints/seclusion/emergency medication: N/A Justification of Continued Inpatient Treatment: Pt. requires interruption of current crisis, medication adjustments, and a safe and therapeutic environment.
[2020-09-22] MEDS: LORazepam 1 MG tablet PO PRN (17:46)
[2020-09-22 19:02] VITALS: BP 134/79
[2020-09-22] MEDS: traZODone 50mg tablet PO PRN (20:08)
--- NOTE | 2020-09-22 20:44 | NUR ---
Nursing Progress Note Legal hold: VOL Client on voluntary status Report received from Ariella WERNER with use of SBAR Why are they here: Pt states he wants to kill himself by injecting heroin into his rectum. Pt has a history of depression, facial reconstruction palate surgery, HTN. Assessment What has happened this shift: pt was in bed at change of shift. He is in a pleasant mood, states he has been accepted to a rehab facility and is looking forward to that. Pt denies s/i, h/i, a/vh, and currently denies anxiety. Pt remained in bed during the evening prior to going to bed. S/I, H/I: Denies A/VH: Denies Sleep:see sleep hours ADL's: Independent Group attendance: no evening groups Were Meds taken: prns only Any med S/E: None noted or reported Mental Status Exam Appearance: Casual in green scrubs Eye contact: Fair Behavior: Cooperative, polite Speech: Soft, Mood: Depressed Affect: Flat Thought process: Linear, future oriented Thought Content: Going to rehab Cognition: A&O X4 Insight: Fair Judgment: Fair Interventions PRN's used: N/A Therapeutic interventions: Provided 1:1 am assessment, medication administration/education/monitoring, encouraged independent performance of ADLs, and monitored Q 15min safety checks. Restraints/seclusion/emergency medication: N/A Justification of Continued Inpatient Treatment: Pt. requires interruption of current crisis, medication adjustments, and a safe and therapeutic environment.
[2020-09-23 07:40] VITALS: BP 136/84
[2020-09-23] MEDS: metoprolol succinate 25mg (24-HOUR) SR. Tablet PO SCH (07:44)
[2020-09-23] MEDS: atorvastatin 10mg tablet PO SCH (07:44)
[2020-09-23] MEDS: lisinopril 10 MG tablet PO SCH (07:45)
[2020-09-23] MEDS ORDERED: venlafaxine XR 75mg capsule (Q24H) PO SCH (08:00)
[2020-09-23] MEDS ORDERED: NICO-668 BC (08:02)
[2020-09-23] MEDS ORDERED: VENL150T3 PO (08:02)
[2020-09-23] MEDS ORDERED: METO100T7 PO (08:02)
[2020-09-23] MEDS ORDERED: ATOR10TA PO (08:02)
[2020-09-23] MEDS ORDERED: TRAZ-251 PO (08:02)
[2020-09-23] MEDS ORDERED: LISI10TA27 PO (08:02)
--- NOTE | 2020-09-23 09:51 | NUR ---
DCP Presenting Issues: Pt's been accepted for admission at the [facility] in [place], [place] for residential drug rehab/treatment. Attending physician plans to d/c pt tomorrow early in the AM and request SS assistance w/dcp activities. Interventions: SS met w/pt and engaged him in dcp activities. Per session, pt confirmed his admit date @ the [facility] for tomorrow at 9AM. SS consulted w/attending physician re finalization of meds and and transmit to [employer] for delivery this afternoon. SS had t/c with [facility] re pt's meds for d/c and the need for delivery late this afternoon or at the end of the day. SS had contact w/[facility] non-medical transportation services & requested transportation for pt for tomorrow @ 6AM. [facility] will contact RN to provide transportation info once they've located a vibratory pile driver. Plan: Pt to d/c tomorrow @ 6AM. Addendum: 09/23/20 at 0955 by Zandra Blackwell SS Amended: Links added.
--- NOTE | 2020-09-23 12:16 | NUR ---
Nursing Progress Note Legal hold: VOL Client on voluntary status Report received from RN with use of SBAR Why are they here: Pt states he wants to kill himself by injecting heroin into his rectum. Pt has a history of depression, facial reconstruction palate surgery, HTN. Assessment What has happened this shift: Patient was asleep at change of shift and up for breakfast. Patient spends a lot of time in his bed/isolates. Patient is preparing for discharge tomorrow, wanting shower, shave and to pick out some clothes from [facility] donations . Patient should be leaving here at 0600 on morning to get there by 0900 am. Patient is happy about going to rehab. Patient denies suicidal/homicidal ideation. Patient denies audio/visual hallucinations. 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 "I get pissed when people try to pass off the meth that has other stuff in it". Srikanth went of to describe the color of good meth verses meth that has bas stuff in it. "The smoke is a different color when there is bad stuff cut into it". This freelance copywriter encourage patient to be open to addiction treatment with the hopes that he can rehab and have a better life. S/I, H/I: Denies A/VH: Denies Sleep: Napped throughout day ADL's: Independent Group attendance: Yes Were Meds taken: Yes Any med S/E: None noted or reported Mental Status Exam Appearance: Casual in green scrubs Eye contact: Fair Behavior: Cooperative, polite Speech: Soft, Mood: Depressed Affect: Flat Thought process: Linear Thought Content: Going to rehab Cognition: A&O X4 Insight: Fair Judgment: Fair Interventions PRN's used: N/A Therapeutic interventions: Provided 1:1 am assessment, medication administration/education/monitoring, encouraged independent performance of ADLs, and monitored Q 15min safety checks. Restraints/seclusion/emergency medication: N/A Justification of Continued Inpatient Treatment: Patient has a planned discharge for tomorrow. Patient is discharging to a rehab facility in [place].
--- NOTE | 2020-09-23 13:28 | NUR ---
Pt. attended group today. Today's group was about the different communications styles i.e passive, aggressive and assertive. We discussed what the characteristics of each style was. We then discussed where they saw themselves at now and where they would like to be with their communication style. Pt engaged quietly in the group. He was interested in the topic, listened intently to this Climbing Guide and his peers. When asked to share he did appropriately. He was alert and oriented X 4. His thought content and thought process was WNL. His demeanor was pleasant and calm. He shared that he feels he is mostly an assertive communicator but at times when others are not working with him or he isn't feeling heard he can become frustrated and turns into an aggressive communicator. Pt. was open to discussing and socializing with his peers. Lakisha Tamez LCSW
[2020-09-23] MEDS: LORazepam 1 MG tablet PO PRN (16:16)
[2020-09-23 20:06] VITALS: BP 136/73
[2020-09-23] MEDS: traZODone 50mg tablet PO PRN (20:32)
--- NOTE | 2020-09-24 01:44 | NUR ---
Nursing Progress Note: Legal hold: VOL Client on voluntary status Report received from RN with use of SBAR Why are they here: Pt states he wants to kill himself by injecting heroin into his rectum. Pt has a history of depression, facial reconstruction palate surgery, HTN. Assessment What has happened this shift: Pt was sitting in his chair in his room reading at time of shift change. Pt denies SI/SH/HI/AVH and endorses feeling anxious and excited to discharge to rehab in [place]. Patient showered and shaved and changed into clean scrubs. Requested trazodone at bedtime to help with sleep. Pt is isolative to self and had no scheduled nighttime meds. Pt plan to discharge at 0300 today. S/I, H/I: Denies A/VH: Denies ADL's: Independent Group attendance: NA Were Meds taken: Yes Any med S/E: None noted or reported Mental Status Exam Appearance: Casual in clean green scrubs, scruffy robertson Eye contact: Fair Behavior: Cooperative, polite Speech: Soft, Mood: Depressed Affect: Depressed Thought process: Linear Thought Content: Going to rehab and discharging in the morning Cognition: A&O X4 Insight: Fair Judgment: Fair Interventions PRN's used: trazodone Therapeutic interventions: Provided 1:1 am assessment, medication administration/education/monitoring, encouraged independent performance of ADLs, and monitored Q 15min safety checks. Restraints/seclusion/emergency medication: N/A Justification of Continued Inpatient Treatment: Patient has a planned discharge for today at 0300 Patient is discharging to a rehab facility in [place].
--- NOTE | 2020-09-24 03:34 | NUR ---
Discharge Note: Pt discharged with all belongings and paperwork without any issue at 0321 into [facility] transit car to be transported to [place] for rehab program. Pt denied SI/SH/HI/AVH at time of discharge and had medication bag given to stage driver to ensure pt safety en route. Pt had no concerns or questions at time of dc.
== END 2020-09-24 03:20 | disposition short-term general hospital (02) | DRG 885 ==
LOC: ADULT MH 14:40
PROVIDERS: ADMIT Psychiatry & Neurology Psychiatry; ATTEND Psychiatry & Neurology Psychiatry
DX: F33.2 Major depressive disorder, recurrent severe without psychotic features (principal); F15.20 Other stimulant dependence, uncomplicated; R45.851 Suicidal ideations; E78.00 Pure hypercholesterolemia, unspecified; E78.5 Hyperlipidemia, unspecified; F41.9 Anxiety disorder, unspecified; I10 Essential (primary) hypertension; Z20.822 Contact with and (suspected) exposure to COVID-19; Z59.0 Homelessness; Z81.8 Family history of other mental and behavioral disorders; Z87.730 Personal history of (corrected) cleft lip and palate; Z90.49 Acquired absence of other specified parts of digestive tract; Z71.51 Drug abuse counseling and surveillance of drug abuser; Z72.0 Tobacco use
CPT/HCPCS: 36415; 80061; 83036; 87081